=== PATIENT | female | born 1980 | race Asian ===

== ENCOUNTER 2017-05-06 19:15 | Inpatient (IN) | payer OTHER ==
[2017-05-06] MEDS ORDERED: LR 1,000 ML IV PRN (19:49)
[2017-05-06] MEDS ORDERED: OLIVE OIL 118 ML BTL MISC PRN (19:49)
[2017-05-06] MEDS ORDERED: EPSOM SALT 454 GM TP PRN (19:49)
[2017-05-06] MEDS ORDERED: OXYTOCIN 20 UNIT in LR 1,000 ML IV PRN (19:49)
[2017-05-06] MEDS ORDERED: TERBUTALINE SULFATE 1 MG/ML VIAL IV PRN (19:49)
[2017-05-06 20:14] LABS: % IMMATURE GRANULYOCYTES 0.5 % (0.0-1.1); ABSOLUTE IMMATURE GRANULOCYTES 0.05 10^3/uL (0.00-0.10); ADD DIFF? NO; ADD MORPH? NO; ADD SCAN? NO; ATYPICAL LYMPHOCYTE FLAG 0 (0-99); FRAGMENT RBC FLAG 0 (0-99); HEMOGLOBIN 14.4 g/dL (12.6-16.3); LEFT SHIFT FLG 0 (0-99); LIPEMIA HEMOLYSIS FLAG 90 (0-99); MEAN CELL HEMOGLOBIN 30.8 pg (27.9-34.1); MEAN CELL VOLUME 85.7 fL (81.5-99.8); MEAN PLATELET VOLUME 12.5 fL (8.7-11.7); PLATELET CLUMPS FLAG 0 (0-99); PLATELET COUNT 130 10^3/uL (150-400); RED BLOOD CELL COUNT 4.67 10^6/uL (4.18-5.33); RED CELL DISTRIBUTION WIDTH 12.2 % (11.5-15.2)
[2017-05-06] MEDS ORDERED: LIDOCAINE 1% 300 MG/30 ML SDV ONE (21:00)
[2017-05-06] MEDS ORDERED: OLIVE OIL 118 ML BTL ONE (21:00)
[2017-05-06] MEDS ORDERED: MISOPROSTOL 200 MCG TAB ONE (21:01)
[2017-05-06] MEDS ORDERED: OXYTOCIN 10 UNIT/ML VIAL ONE (21:01)
[2017-05-06] MEDS ORDERED: TERBUTALINE SULFATE 1 MG/ML VIAL ONE (21:01)
[2017-05-06] MEDS ORDERED: AMMONIA AROMATIC 1 EACH AMP IH ONE (21:01)
[2017-05-06] MEDS ORDERED: MISOPROSTOL 100 MCG TAB PO ONE (21:11)
--- NOTE | 2017-05-06 21:58 | GHP ---
[f rep st] PREOP HISTORY AND PHYSICAL DATE OF ADMISSION: 05/06/2017 HISTORY OF PRESENT ILLNESS: The patient is a 36-year-old, G1, P0, with an estimated due date of 04/24, currently at 40 weeks and 2 days, who presents for postdates induction. The patient has not had any signs of contractions or vaginal bleeding. Bag of water is intact. The patient has been hav ing good movement. The patient has declined vaginal exams in the office, but has been told gopal t the baby is vertex but not really engaged into the pelvis. The patient is interested in induction and understands that she would need cervical ripening. The patient has been counseled as to options including a Beck catheter placed within the cervix that she would be able to go home and sleep at [facility] versus Cytotec to ripen the cervix medically. The patient opts to proceed with Cytotec so that sh e does not have to have the vaginal manipulation. She is anxious about discomfort vaginally. PAST OBSTETRIC HISTORY: The patient has been followed with [facility] since 6 weeks gestat ion. The patient has had a relatively uncomplicated . She did have a very small subchorion ic hemorrhage in the 1st trimester, and this was observed on ultrasound and spontaneously resolved. The patient had early testing that was all normal. The patient has had some symptoms of aci d reflux, managed with Tums. At the anatomy ultrasound, the baby was 40th percentile growth with nor mal amniotic fluid with a left lateral placenta. Anatomy check was normal. The patient had a Tdap v accination at 31 weeks. LABS: Include maternal blood type B positive with negative antibody screen. RPR is nonreac tive. Rubella immune. Hepatitis B surface antigen negative. HIV negative. SMA, cystic fibrosis, f ragile X all negative. Urinalysis and culture negative. Pap smear normal. Gonorrhea and chlamydia negative. Verifi testing was normal and MSAFP was negative. Recent hematocrit 41%. 1-hour Glucola was normal. GBS culture was negative. PAST MEDICAL HISTORY: Endometriosis with pelvic pain. PAST SURGICAL HISTORY: Laparoscopy in 2009 for endometriosis with an ovarian cyst that was removed. ALLERGIES: No known drug allergies. CURRENT MEDICATIONS: Only vitamins and occasional vitamin D. SOCIAL HISTORY: The patient is , lives with her Travis, who is a rheumatology physici an. The patient is a nonsmoker. No alcohol or drug use. PHYSICAL EXAM: GENERAL: Upon admission, upon exam, the patient is a bit anxious about the labor pro cess, but is otherwise in no distress. Well-developed, well-nourished female at full-term. VITAL SI GNS: The patient is afebrile. Initial blood pressure 114/81. See nursing documentation for full de tails. heart tones show a category 1 tracing with baseline in the 140s, with good variability and accelerations, with no decelerations. The patient has had a rare contraction noted on the monito r that was not noted by the patient. PELVIC: Reveals a soft cervix that is mid position, fingertip, long, -2 station. An ultrasound was performed to confirm vertex presentation. EXTREMITIES: Nonten lg, no edema. ASSESSMENT: Intrauterine at 40 weeks 2 days with unfavorable cervix, admitted for cervical ripening before induction tomorrow. Maternal blood type B positive, and GBS negative. The patient desires Cytotec for cervical ripening. She will receive 50 mcg orally followed by 25 mcg q.4 hours. The patient will have monitoring for tolerance throughout the night. PLAN: Is to begin Pitocin tomorrow and the patient desires an epidural for labor management. /[id number]/MODL
[2017-05-07] MEDS: MISOPROSTOL 100 MCG TAB PO SCH ×3 (01:22→09:40)
--- NOTE | 2017-05-07 13:19 | OBPROG ---
Labor Progress Note Assessment/Plan: Assessment: 36 yo G1 @ 40.3 weeks admitted for elective IOL Exam performed @ 935AM--late entry note Plan: Continue cervical ripening (Cytotec PV q 4 hrs), reassess at next (q4h) labor check. 05/07/17 13:16 05/07/17 13:18 Subjective/Intrapartum Course: 05/07/17 13:18 Comfortable, not feeling contractions. No vaginal bleeding. Reports good movement. Objective: 05/06/17 20:04 Patient ABO/Rh B POSITIVE 05/06/17 20:04 - SVE Dilation (cm): 1 Effacement (%): 50 Station: -3 Membranes: Intact - FHR Assessment Maurice FHR (bpm): 130 FHR Pattern Variability: Moderate FHR Category: 1 Oxytocin Orders Assessment - Pre-Induction/Augmentation Assessment Gestational Age: 40 week(s) and 2 day(s) ICD10 Worksheet Patient Problems: Problems Problem Status Onset Encounter for induction of labor Acute
[2017-05-07] MEDS ORDERED: MISOPROSTOL 25 MCG VG SCH (14:30)
[2017-05-07] MEDS ORDERED: DINOPROSTONE 10 MG VAG SUPP VG ONE (14:48)
--- NOTE | 2017-05-07 15:53 | OBPROG ---
Labor Progress Note Assessment/Plan: Assessment: 36 yo G1 @ 40.3 weeks admitted for elective IOL Exam performed @ 935AM--late entry note Plan: Continue cervical ripening (Cytotec PV q 4 hrs), reassess at next (q4h) labor check. 05/07/17 13:16 05/07/17 13:18 05/07/17 15:51 Cervidil placed for cervical ripening Subjective/Intrapartum Course: 05/07/17 13:18 Comfortable, not feeling contractions. No vaginal bleeding. Reports good movement. 05/07/17 15:51 Complains of mild-moderate pain with contractions. No vaginal bleeding or loss of fluid. Objective: 05/06/17 20:04 Patient ABO/Rh B POSITIVE 05/06/17 20:04 CE: FT/thick/-3/posterior, non-favorable (even after 4 misoprostol doses), not a Beck bulb candidate FHR: 130, cat I [place]: q 2 min - SVE Dilation (cm): 1 Effacement (%): 50 Station: -3 Membranes: Intact - FHR Assessment Maurice FHR (bpm): 130 FHR Pattern Variability: Moderate FHR Category: 1 Oxytocin Orders Assessment - Pre-Induction/Augmentation Assessment Gestational Age: 40 week(s) and 2 day(s) ICD10 Worksheet Patient Problems: Problems Problem Status Onset Encounter for induction of labor Acute
[2017-05-08] MEDS ORDERED: ACETAMINOPHEN 325 MG TAB ONE
[2017-05-08] MEDS: ACETAMINOPHEN 325 MG TAB PO PRN (00:01)
[2017-05-08] MEDS: MISOPROSTOL 100 MCG TAB PO SCH (02:58)
--- NOTE | 2017-05-08 05:14 | OBPROG ---
Labor Progress Note Assessment/Plan: Assessment: 36 yo G1 @ 40.3 weeks admitted for elective IOL Exam performed @ 935AM--late entry note Plan: Continue cervical ripening (Cytotec PV q 4 hrs), reassess at next (q4h) labor check. 05/07/17 13:16 05/07/17 13:18 05/07/17 15:51 Cervidil placed for cervical ripening 05/08/17 05:10 Cervidil out. CE: 1/75%/posterior Patient wants epidural Considering Beck Bulb s/p epidural Subjective/Intrapartum Course: 05/07/17 13:18 Comfortable, not feeling contractions. No vaginal bleeding. Reports good movement. 05/07/17 15:51 Complains of mild-moderate pain with contractions. No vaginal bleeding or loss of fluid. 05/08/17 05:12 Patient did not rest much throughout the night. Objective: 05/06/17 20:04 Patient ABO/Rh B POSITIVE 05/06/17 20:04 - SVE Dilation (cm): 1 Effacement (%): 75 Station: -3 Membranes: Intact - FHR Assessment Maurice FHR (bpm): 120 FHR Pattern Variability: Moderate FHR Category: 1 - Physical Exam General Appearance: anxiety Cardiac/Chest: regular rate, rhythm Abdomen: normal bowel sounds, soft Extremities: non-tender Neuro/Psych: no motor/sensory deficits, alert, normal mood/affect, oriented x 3 Oxytocin Orders Assessment - Pre-Induction/Augmentation Assessment Gestational Age: 40 week(s) and 2 day(s) ICD10 Worksheet Patient Problems: Problems Problem Status Onset Encounter for induction of labor Acute
--- NOTE | 2017-05-08 07:07 | OBPROG ---
Labor Progress Note Assessment/Plan: Assessment: 36 yo G1 @ 40.3 weeks admitted for elective IOL Exam performed @ 935AM--late entry note Plan: Continue cervical ripening (Cytotec PV q 4 hrs), reassess at next (q4h) labor check. 05/07/17 13:16 05/07/17 13:18 05/07/17 15:51 Cervidil placed for cervical ripening 05/08/17 05:10 Cervidil out. CE: 1/75%/posterior Patient wants epidural Considering Beck Bulb s/p epidural 05/08/17 07:05 s/p epidural s/p AROM, clear fluid 05/08/17 07:07 Await 2nd stage Subjective/Intrapartum Course: 05/07/17 13:18 Comfortable, not feeling contractions. No vaginal bleeding. Reports good movement. 05/07/17 15:51 Complains of mild-moderate pain with contractions. No vaginal bleeding or loss of fluid. 05/08/17 05:12 Patient did not rest much throughout the night. 05/08/17 07:06 Comfortable s/p epidural Objective: 05/06/17 20:04 Patient ABO/Rh B POSITIVE 05/06/17 20:04 - SVE Dilation (cm): 8 Effacement (%): 100 Station: -1 Membranes: AROM Amniotic Fluid Color: Clear - Contraction Pattern Assessment Current Contraction Pattern: Regular - FHR Assessment Maurice FHR (bpm): 115 (s/p epidural) FHR Pattern Variability: Moderate FHR Category: 1 Oxytocin Orders Assessment - Pre-Induction/Augmentation Assessment Gestational Age: 40 week(s) and 2 day(s) ICD10 Worksheet Patient Problems: Problems Problem Status Onset Encounter for induction of labor Acute
[2017-05-08] MEDS ORDERED: fentaNYL 2MCG/ML/BUP 0.1% RTU 100 ML BAG EP ONE (08:22)
[2017-05-08] MEDS ORDERED: BUPIVACAINE 0.25% 30 ML SDV ONE (08:23)
[2017-05-08] MEDS ORDERED: PHENYLEPHRINE HCL 100 MCG/ML SYR ONE (08:23)
[2017-05-08] MEDS ORDERED: PHENYLEPHRINE HCL 100 MCG/ML SYR IVP PRN (09:07)
[2017-05-08] MEDS ORDERED: ONDANSETRON 4 MG/2 ML VIAL IVP PRN (09:07)
--- NOTE | 2017-05-08 09:09 | PREANESOB ---
Obstetric Pre-Anesthesia Info - General Info Proposed Procedure: labor epidural : 1 Para: 0 RASHEED: 05/04/17 Gestational Age: 40 week(s) and 2 day(s) - Labor Status Cervical Dilation per last OB SVE: 8 Station per last OB SVE: -1 Amniotic Fluid Color: Clear Anesthesia Allergies/Adverse Reactions: Allergy/AdvReac Type Severity Reaction Status Date / Time No Known Allergies Allergy Unverified 05/06/17 19:35 Home Medications: Medication Instructions Recorded Ferrous Sulfate [Iron] 1 tab PO DAILY 05/06/17 Vit27&Calcium/Iron/FA 1 tab PO DAILY 05/06/17 [] Visit Medications: Generic Name Dose Route Start Last Admin Trade Name Freq PRN Reason Stop Dose Admin Acetaminophen 650 mg 05/08/17 00:01 05/08/17 00:01 Tylenol PO 11/04/17 00:00 650 mg Q6HRS PRN Administration Pain, Mild/Fever, Can Take PO Lactated Ringer's 1,000 mls @ 0 mls/hr 05/06/17 19:49 Lr IV 11/02/17 19:48 PRN PRN SEE PROTOCOL CONDITIONS Protocol Per Protocol Oxytocin 20 unit/ Lactated 1,002 mls @ 150 mls/hr 05/06/17 19:49 Ringer's IV PRN PRN Post- bleeding Ibuprofen 600 mg 05/06/17 19:49 Motrin PO 11/02/17 19:48 Q6HRS PRN post , inflammation Magnesium Sulfate 454 gm 05/06/17 19:49 Epsom Salt TP 11/02/17 19:48 Q1H PRN perineal discomfort [place] Oil 118 ml 05/06/17 19:49 Sweet Oil MISC 11/02/17 19:48 ONCE PRN perineal massage Terbutaline Sulfate 0.25 mg 05/06/17 19:49 Brethine IV 11/02/17 19:48 ONCE PRN Tachysystole Discontinued Medications Generic Name Dose Route Start Last Admin Trade Name Freq PRN Reason Stop Dose Admin Acetaminophen Confirm 05/08/17 00:00 Tylenol Administered 05/08/17 00:01 Dose 650 mg .ROUTE .STK-MED ONE Ammonia (Aromatic Spirit) Confirm 05/06/17 21:01 Ammonia Aromatic Administered 05/06/17 21:02 Dose 1 each IH .STK-MED ONE Bupivacaine HCl Confirm 05/08/17 08:23 Sensorcaine 0.25% Sdv Administered 05/08/17 08:24 Dose 30 ml .ROUTE .STK-MED ONE Dinoprostone 10 mg 05/07/17 14:48 05/07/17 15:45 Cervidil VG 05/07/17 14:49 10 mg ONCE ONE Administration Ephedrine Sulfate Confirm 05/06/17 21:01 Ephedrine Sulfate Administered 05/06/17 21:02 Dose 50 mg .ROUTE .STK-MED ONE Ephedrine Sulfate Confirm 05/08/17 08:22 Ephedrine Sulfate Administered 05/08/17 08:23 Dose 50 mg .ROUTE .STK-MED ONE Fentanyl/Bupivacaine HCl Confirm 05/08/17 08:22 Fentanyl/Bupivacaine/Ns 2 Mcg/Ml 0.1% (Premix Administered 05/08/17 08:23 Dose 100 ml EP .STK-MED ONE Lidocaine HCl Confirm 05/06/17 21:00 Lidocaine Hcl 1% Administered 05/06/17 21:01 Dose 300 mg .ROUTE .STK-MED ONE Misoprostol Confirm 05/06/17 21:01 Cytotec Administered 05/06/17 21:02 Dose 1,000 mcg .ROUTE .STK-MED ONE Misoprostol 50 mcg 05/06/17 21:11 05/06/17 21:34 Cytotec PO 05/06/17 21:12 50 mcg ONCE ONE Administration Misoprostol 25 mcg 05/07/17 01:30 05/08/17 02:58 Cytotec PO 11/03/17 01:29 Not Given Q4H NIKI Misoprostol 25 mcg 05/07/17 14:30 05/08/17 02:58 Cytotec Vag Cap VG 11/03/17 14:29 Not Given Q4H NIKI Mancelona Oil Confirm 05/06/17 21:00 Sweet Oil Administered 05/06/17 21:01 Dose 118 ml .ROUTE .STK-MED ONE Oxytocin Confirm 05/06/17 21:01 Pitocin Administered 05/06/17 21:02 Dose 30 unit .ROUTE .STK-MED ONE Phenylephrine HCl Confirm 05/08/17 08:23 Neosynephrine Administered 05/08/17 08:24 Dose 1,000 mcg .ROUTE .STK-MED ONE Terbutaline Sulfate Confirm 05/06/17 21:01 Brethine Administered 05/06/17 21:02 Dose 1 mg .ROUTE .STK-MED ONE - Vital Signs Height/Weight (Nursing): Height 160.02 cm Weight 62.596 kg - Focused Exam Neck exam: FROM Mallampati Score: Class 1 Mouth exam: normal dental/mouth exam Pulmonary: no respiratory distress Cardiovascular: regular rate and rhythym Labs: 05/06/17 20:04 Patient ABO/Rh B POSITIVE 05/06/17 20:04 - Plan Consent Signed and on Chart: Yes Urgent/Emergent Case: Jazz grimaldo completed preop but documented later for safe timely pt care
[2017-05-08] MEDS ORDERED: LR 500 ML IV SCH (09:30)
[2017-05-08] MEDS ORDERED: fentaNYL 2MCG/ML/BUP 0.1% RTU 100 ML EP SCH (09:30)
[2017-05-08] MEDS ORDERED: LR 500 ML IV PRN ×2 (12:06→13:17)
--- NOTE | 2017-05-08 12:07 | OBPROG ---
Labor Progress Note Assessment/Plan: Assessment: 36 y/o @ 40 4/7 wks for post date IOL Plan: s/p cervical ripening with Cytotec x 5 and Cervidil On exam, she is 1-2/25/-2; AROM-small amount blood-tinged fluid noted s/p epidural, pt is comfortable Beck bulb placed with speculum and inflated with 30 cc NS, pt rodolfo well Will start Pitocin per protocol FHTs- Cat I tracing 05/08/17 12:07 Subjective/Intrapartum Course: 05/07/17 13:18 Comfortable, not feeling contractions. No vaginal bleeding. Reports good movement. 05/07/17 15:51 Complains of mild-moderate pain with contractions. No vaginal bleeding or loss of fluid. 05/08/17 05:12 Patient did not rest much throughout the night. 05/08/17 07:06 Comfortable s/p epidural 05/08/17 12:10 Pt is doing well, no complaints. Comfortable with epidural that was replaced. Objective: 05/06/17 20:04 Patient ABO/Rh B POSITIVE 05/06/17 20:04 - SVE Dilation (cm): 1 Effacement (%): Less than 50 Station: -2 Membranes: AROM Amniotic Fluid Color: Clear - Contraction Pattern Assessment Current Contraction Pattern: Irregular - FHR Assessment Maurice FHR (bpm): 140 FHR Pattern Variability: Moderate FHR Category: 1 - Procedures Non-surgical Procedures: Amniotomy - AP Antepartum Course: 05/08/17 12:11 Postdate IOL. Oxytocin Orders Assessment - Pre-Induction/Augmentation Assessment Gestational Age: 40 week(s) and 2 day(s) ICD10 Worksheet Patient Problems: Problems Problem Status Onset Encounter for induction of labor Acute Post-dates Acute - ICD10 Problem Qualifiers (1) Post-dates
[2017-05-08] MEDS ORDERED: OXYTOCIN 30 UNIT in LR 500 ML IV SCH ×2 (12:15→13:30)
[2017-05-08] MEDS ORDERED: OXYTOCIN 10 UNIT/ML VIAL ONE (12:47)
--- NOTE | 2017-05-08 15:44 | OBPROG ---
Labor Progress Note Assessment/Plan: Assessment: 36 y/o @ 40 4/7 wks for post date IOL Plan: s/p cervical ripening with Cytotec x 5 and Cervidil On exam, mosqueda bulb noted to be in vagina; it was deflated and removed Pitocin at 6 mu/min, cont per protocol FHTs- Cat I tracing 05/08/17 15:41 Subjective/Intrapartum Course: 05/07/17 13:18 Comfortable, not feeling contractions. No vaginal bleeding. Reports good movement. 05/07/17 15:51 Complains of mild-moderate pain with contractions. No vaginal bleeding or loss of fluid. 05/08/17 05:12 Patient did not rest much throughout the night. 05/08/17 07:06 Comfortable s/p epidural 05/08/17 12:10 Pt is doing well, no complaints. Comfortable with epidural that was replaced. 05/08/17 15:42 Pt had some n/v after eating some soup, but relief with Zofran. Kept down pudding. No pain with ctx's noted. Objective: 05/06/17 20:04 Patient ABO/Rh B POSITIVE 05/06/17 20:04 - SVE Dilation (cm): 2 Effacement (%): 50 Station: -2 Membranes: AROM Amniotic Fluid Color: Clear - Contraction Pattern Assessment Current Contraction Pattern: Irregular (q 3-7 min) - FHR Assessment Maurice FHR (bpm): 140 FHR Pattern Variability: Moderate FHR Category: 1 - Procedures Non-surgical Procedures: Amniotomy - AP Antepartum Course: 05/08/17 12:11 Postdate IOL. Oxytocin Orders Assessment - Pre-Induction/Augmentation Assessment Gestational Age: 40 week(s) and 2 day(s) ICD10 Worksheet Patient Problems: Problems Problem Status Onset Encounter for induction of labor Acute Post-dates Acute - ICD10 Problem Qualifiers (1) Post-dates
--- NOTE | 2017-05-09 00:01 | OBPROG ---
Labor Progress Note Assessment/Plan: Assessment: 36 y/o @ 40 4/7 wks for post date IOL Plan: s/p cervical ripening with Cytotec x 5, Cervidil and mosqueda bulb Pitocin at 12 mu/min, was up to 20 mu/min byt decreased secondary to intermittent late decels FHTs- Cat II tracing, will cont to closely monitor IUPC unable to be placed at this time Will recheck in 2 hours and if no cervical change, discuss failed IOL and proceeding to OR for PCS Pt agrees with the POC 05/08/17 23:58 Subjective/Intrapartum Course: 05/07/17 13:18 Comfortable, not feeling contractions. No vaginal bleeding. Reports good movement. 05/07/17 15:51 Complains of mild-moderate pain with contractions. No vaginal bleeding or loss of fluid. 05/08/17 05:12 Patient did not rest much throughout the night. 05/08/17 07:06 Comfortable s/p epidural 05/08/17 12:10 Pt is doing well, no complaints. Comfortable with epidural that was replaced. 05/08/17 15:42 Pt had some n/v after eating some soup, but relief with Zofran. Kept down pudding. No pain with ctx's noted. 05/09/17 00:00 Pt was sleeping, no complaints. Objective: 05/06/17 20:04 Patient ABO/Rh B POSITIVE 05/06/17 20:04 - SVE Dilation (cm): 2 Effacement (%): 50 Station: -2 (2-3) Membranes: AROM Amniotic Fluid Color: Clear - Contraction Pattern Assessment Current Contraction Pattern: Regular (q 3-5 min) - FHR Assessment Maurice FHR (bpm): 140 FHR Pattern Variability: Moderate FHR Category: 2 (intermittent late decels, strip now reassuring) - Procedures Non-surgical Procedures: Amniotomy - AP Antepartum Course: 05/08/17 12:11 Postdate IOL. Oxytocin Orders Assessment - Pre-Induction/Augmentation Assessment Gestational Age: 40 week(s) and 2 day(s) ICD10 Worksheet Patient Problems: Problems Problem Status Onset Encounter for induction of labor Acute Post-dates Acute - ICD10 Problem Qualifiers (1) Post-dates
--- NOTE | 2017-05-09 02:03 | OBPROG ---
Labor Progress Note Assessment/Plan: Assessment: 36 y/o @ 40 5/7 wks for post date IOL Plan: s/p cervical ripening with Cytotec x 5, Cervidil and mosqueda bulb Pitocin at 10 mu/min, cont per protocol Cervical change noted, now 3-4/70/-2 FHTs- Cat II tracing, will cont to closely monitor 05/09/17 01:59 Subjective/Intrapartum Course: 05/07/17 13:18 Comfortable, not feeling contractions. No vaginal bleeding. Reports good movement. 05/07/17 15:51 Complains of mild-moderate pain with contractions. No vaginal bleeding or loss of fluid. 05/08/17 05:12 Patient did not rest much throughout the night. 05/08/17 07:06 Comfortable s/p epidural 05/08/17 12:10 Pt is doing well, no complaints. Comfortable with epidural that was replaced. 05/08/17 15:42 Pt had some n/v after eating some soup, but relief with Zofran. Kept down pudding. No pain with ctx's noted. 05/09/17 00:00 Pt was sleeping, no complaints. 05/09/17 02:03 Pt still comfortable, resting. Objective: 05/06/17 20:04 Patient ABO/Rh B POSITIVE 05/06/17 20:04 - SVE Dilation (cm): 3 (3-4) Effacement (%): 75 Station: -2 Membranes: AROM Amniotic Fluid Color: Clear - Contraction Pattern Assessment Current Contraction Pattern: Regular (q 3-5 min) - FHR Assessment Maurice FHR (bpm): 160 FHR Pattern Variability: Moderate FHR Category: 2 (Intermittent variable decels noted;) - Procedures Non-surgical Procedures: Amniotomy - AP Antepartum Course: 05/08/17 12:11 Postdate IOL. Oxytocin Orders Assessment - Pre-Induction/Augmentation Assessment Gestational Age: 40 week(s) and 2 day(s) ICD10 Worksheet Patient Problems: Problems Problem Status Onset Encounter for induction of labor Acute Post-dates Acute - ICD10 Problem Qualifiers (1) Post-dates
[2017-05-09] MEDS: ACETAMINOPHEN 325 MG TAB PO PRN ×2 (03:21→23:11)
--- NOTE | 2017-05-09 05:51 | OBPROG ---
Labor Progress Note Assessment/Plan: Assessment: 36 y/o @ 40 5/7 wks for post date IOL Plan: s/p cervical ripening with Cytotec x 5, Cervidil and mosqueda bulb Pitocin was stopped secondary to intermittent late decels, will restart at 2 mu and if late decels continue will proceed to OR for PCS IUPC placed without difficulty FHTs- Cat II tracing, will cont to closely monitor 05/09/17 05:47 Subjective/Intrapartum Course: 05/07/17 13:18 Comfortable, not feeling contractions. No vaginal bleeding. Reports good movement. 05/07/17 15:51 Complains of mild-moderate pain with contractions. No vaginal bleeding or loss of fluid. 05/08/17 05:12 Patient did not rest much throughout the night. 05/08/17 07:06 Comfortable s/p epidural 05/08/17 12:10 Pt is doing well, no complaints. Comfortable with epidural that was replaced. 05/08/17 15:42 Pt had some n/v after eating some soup, but relief with Zofran. Kept down pudding. No pain with ctx's noted. 05/09/17 00:00 Pt was sleeping, no complaints. 05/09/17 02:03 Pt still comfortable, resting. 05/09/17 05:51 Pt was sleeping. Objective: 05/06/17 20:04 Patient ABO/Rh B POSITIVE 05/06/17 20:04 - SVE Dilation (cm): 4 Effacement (%): 75 Station: -1 Membranes: AROM Amniotic Fluid Color: Clear - Contraction Pattern Assessment Current Contraction Pattern: Irregular - FHR Assessment Maurice FHR (bpm): 150 FHR Pattern Variability: Moderate FHR Category: 2 (intermittent late decels and variable decels noted) - Procedures Non-surgical Procedures: Amniotomy - AP Antepartum Course: 05/08/17 12:11 Postdate IOL. Oxytocin Orders Assessment - Pre-Induction/Augmentation Assessment Gestational Age: 40 week(s) and 2 day(s) ICD10 Worksheet Patient Problems: Problems Problem Status Onset Encounter for induction of labor Acute Post-dates Acute - ICD10 Problem Qualifiers (1) Post-dates
[2017-05-09] MEDS ORDERED: ceFAZolin 2 GM/SWFI 2 GM/20 ML SYR IVP ONE (06:24)
[2017-05-09] MEDS ORDERED: CITRIC ACID/SODIUM CITRATE 30 ML UDCUP ONE (06:32)
[2017-05-09] MEDS ORDERED: CEFAZOLIN 2 GM/DEXTROSE/100 ML BAG IV ONE (06:32)
[2017-05-09] MEDS ORDERED: ONDANSETRON 4 MG/2 ML VIAL ONE (06:49)
[2017-05-09] MEDS ORDERED: ceFAZolin 2 GM/DEXTROSE 100 ML IV ONE (07:00)
[2017-05-09] MEDS ORDERED: OXYTOCIN 100 UNITS/10 ML VIAL ONE (07:10)
[2017-05-09] MEDS ORDERED: fentaNYL 100 MCG/2 ML INJ ONE (07:11)
[2017-05-09] MEDS ORDERED: morphINE PF 5 MG/10 ML INJ ONE (07:17)
[2017-05-09] MEDS ORDERED: KETOROLAC 30 MG/1 ML SDV ONE (07:20)
[2017-05-09] MEDS ORDERED: IBUPROFEN 600 MG TAB PO PRN (07:53)
[2017-05-09] MEDS ORDERED: PROMETHAZINE HCL 25 MG/ML INJ IVP PRN (07:53)
[2017-05-09] MEDS ORDERED: MAGNESIUM HYDROXIDE 30 ML UDCUP PO PRN (07:53)
[2017-05-09] MEDS ORDERED: LACTULOSE 20 GM/30 ML UDCUP PO PRN (07:53)
[2017-05-09] MEDS ORDERED: SIMETHICONE 80 MG TAB CHEW PO PRN (07:53)
[2017-05-09] MEDS ORDERED: DOCUSATE SODIUM 100 MG CAP PO PRN (07:53)
[2017-05-09] MEDS ORDERED: POLYETHYLENE GLYCOL 3350 17 GM PKT PO PRN (07:53)
[2017-05-09] MEDS ORDERED: BISACODYL 10 MG SUPP PR PRN (07:53)
--- NOTE | 2017-05-09 07:58 | PREANESOB ---
Obstetric Pre-Anesthesia Info - General Info Proposed Procedure: Section : 1 Para: 0 RASHEED: 05/04/17 Gestational Age: 40 week(s) and 2 day(s) - Info Status: Full Term FHR Pattern: Non-reassuring - Labor Status Cervical Dilation per last OB SVE: 4 Station per last OB SVE: -1 Amniotic Fluid Color: Clear Section History: Primary Indications for Current Section: Non-reas. Status Labor Epidural: Yes (Pre-existing epidural. RBA discussed.) Anesthesia Allergies/Adverse Reactions: Allergy/AdvReac Type Severity Reaction Status Date / Time No Known Allergies Allergy Unverified 05/06/17 19:35 Home Medications: Medication Instructions Recorded Ferrous Sulfate [Iron] 1 tab PO DAILY 05/06/17 Vit27&Calcium/Iron/FA 1 tab PO DAILY 05/06/17 [] Visit Medications: Generic Name Dose Route Start Last Admin Trade Name Freq PRN Reason Stop Dose Admin Acetaminophen 650 mg 05/08/17 00:01 05/09/17 03:21 Tylenol PO 11/04/17 00:00 650 mg Q6HRS PRN Administration Pain, Mild/Fever, Can Take PO Hydrocodone Bitart/Acetaminophen 1 - 2 tab 05/09/17 07:53 Center 5/325 PO 05/19/17 07:52 Q4HRS PRN Pain, Moderate Bisacodyl 10 mg 05/09/17 07:53 Dulcolax Rectal OR 11/05/17 07:52 DAILY PRN Constipation Protocol Docusate Sodium 100 mg 05/09/17 07:53 Colace PO 11/05/17 07:52 BID PRN Constipation Ephedrine Sulfate 10 mg 05/08/17 09:07 Ephedrine Sulfate IV 11/04/17 09:06 .Q2M PRN Hypotension Lactated Ringer's 1,000 mls @ 0 mls/hr 05/06/17 19:49 05/09/17 02:49 Lr IV 11/02/17 19:48 1,000 mls PRN PRN Administration SEE PROTOCOL CONDITIONS Protocol Per Protocol Oxytocin 20 unit/ Lactated 1,002 mls @ 150 mls/hr 05/06/17 19:49 Ringer's IV PRN PRN Post- bleeding Fentanyl/Bupivacaine HCl 100 mls @ 0 mls/hr 05/08/17 09:30 05/09/17 04:12 Fentanyl/Bupivacaine/Ns 2 Mcg/Ml 0.1% (Premix EP 05/18/17 09:29 100 mls CONT NIKI Administration Protocol As Directed Lactated Ringer's 500 mls @ 0 mls/hr 05/08/17 09:30 05/08/17 07:00 Lr IV 11/04/17 09:29 500 mls CONT NIKI Administration As Directed Lactated Ringer's 500 mls @ 500 mls/hr 05/08/17 12:06 Lr IV PRN PRN Maternal Hypotension Lactated Ringer's 500 mls @ 500 mls/hr 05/08/17 13:17 Lr IV PRN PRN Maternal Hypotension Oxytocin 30 unit/ Lactated 503 mls @ 0 mls/hr 05/08/17 12:15 Ringer's IV 11/04/17 12:14 CONT NIKI Protocol Per Protocol Oxytocin 30 unit/ Lactated 503 mls @ 0 mls/hr 05/08/17 13:30 Ringer's IV 11/04/17 13:29 CONT NIKI Protocol Per Protocol Ibuprofen 600 mg 05/06/17 19:49 Motrin PO 11/02/17 19:48 Q6HRS PRN post , inflammation Ibuprofen 600 mg 05/09/17 07:53 Motrin PO 11/05/17 07:52 Q6HRS PRN Inflammation Ketorolac Tromethamine 30 mg 05/09/17 12:00 Toradol IVP 05/10/17 06:01 Q6HRS NIKI Lactulose 20 gm 05/09/17 07:53 Cephulac PO 11/05/17 07:52 TID PRN Constipation Protocol Magnesium Hydroxide 30 ml 05/09/17 07:53 Milk Of Magnesia PO 11/05/17 07:52 DAILY PRN Constipation Protocol Magnesium Sulfate 454 gm 05/06/17 19:49 Epsom Salt TP 11/02/17 19:48 Q1H PRN perineal discomfort [place]ford Oil 118 ml 05/06/17 19:49 Sweet Oil MISC 11/02/17 19:48 ONCE PRN perineal massage Ondansetron HCl 4 mg 05/08/17 09:07 05/08/17 13:26 Zofran IVP 05/09/17 09:06 4 mg Q4HRS PRN Administration Nausea/Vomiting, Can't Take PO Phenylephrine HCl 100 mcg 05/08/17 09:07 Neosynephrine IVP 11/04/17 09:06 .Q2M PRN Hypotension Polyethylene Glycol 17 gm 05/09/17 07:53 Miralax PO 11/05/17 07:52 DAILY PRN Constipation, patient prefers Protocol Promethazine HCl 25 mg 05/09/17 07:53 Phenergan IVP 11/05/17 07:52 Q6HRS PRN Nausea/Vomiting, Use 1st Senna/Docusate Sodium 1 - 2 tab 05/09/17 09:00 Senokot-S PO 11/05/17 08:59 BID NIKI Protocol Simethicone 80 mg 05/09/17 07:53 Mylicon PO 11/05/17 07:52 .TIDMEALS AND HS PRN Gas Terbutaline Sulfate 0.25 mg 05/06/17 19:49 Brethine IV 11/02/17 19:48 ONCE PRN Tachysystole Discontinued Medications Generic Name Dose Route Start Last Admin Trade Name [place] PRN Reason Stop Dose Admin Acetaminophen Confirm 05/08/17 00:00 Tylenol Administered 05/08/17 00:01 Dose 650 mg .ROUTE .STK-MED ONE Ammonia (Aromatic Spirit) Confirm 05/06/17 21:01 Ammonia Aromatic Administered 05/06/17 21:02 Dose 1 each IH .STK-MED ONE Bupivacaine HCl Confirm 05/08/17 08:23 Sensorcaine 0.25% Sdv Administered 05/08/17 08:24 Dose 30 ml .ROUTE .STK-MED ONE Cefazolin Sodium/Dextrose Confirm 05/09/17 06:32 Ancef 2 Gm (Premix) Administered 05/09/17 06:33 Dose 2 gm IV .STK-MED ONE Citric Acid/Sodium Citrate Confirm 05/09/17 06:32 Bicitra Administered 05/09/17 06:33 Dose 30 ml .ROUTE .STK-MED ONE Dinoprostone 10 mg 05/07/17 14:48 05/07/17 15:45 Cervidil VG 05/07/17 14:49 10 mg ONCE ONE Administration Ephedrine Sulfate Confirm 05/06/17 21:01 Ephedrine Sulfate Administered 05/06/17 21:02 Dose 50 mg .ROUTE .STK-MED ONE Ephedrine Sulfate Confirm 05/08/17 08:22 Ephedrine Sulfate Administered 05/08/17 08:23 Dose 50 mg .ROUTE .STK-MED ONE Fentanyl Confirm 05/09/17 07:11 Sublimaze Administered 05/09/17 07:12 Dose 100 mcg .ROUTE .STK-MED ONE Fentanyl/Bupivacaine HCl Confirm 05/08/17 08:22 Fentanyl/Bupivacaine/Ns 2 Mcg/Ml 0.1% (Premix Administered 05/08/17 08:23 Dose 100 ml EP .STK-MED ONE Cefazolin Sodium/Dextrose 100 mls @ 200 mls/hr 05/09/17 07:00 05/09/17 06:34 Ancef 2 Gm (Premix) IV 05/09/17 07:29 100 mls ONCE ONE Administration Ketorolac Tromethamine Confirm 05/09/17 07:20 Toradol Administered 05/09/17 07:21 Dose 30 mg .ROUTE .STK-MED ONE Lidocaine HCl Confirm 05/06/17 21:00 Lidocaine Hcl 1% Administered 05/06/17 21:01 Dose 300 mg .ROUTE .STK-MED ONE Misoprostol Confirm 05/06/17 21:01 Cytotec Administered 05/06/17 21:02 Dose 1,000 mcg .ROUTE .STK-MED ONE Misoprostol 50 mcg 05/06/17 21:11 05/06/17 21:34 Cytotec PO 05/06/17 21:12 50 mcg ONCE ONE Administration Misoprostol 25 mcg 05/07/17 01:30 05/08/17 02:58 Cytotec PO 11/03/17 01:29 Not Given Q4H NIKI Misoprostol 25 mcg 05/07/17 14:30 05/08/17 02:58 Cytotec Vag Cap VG 11/03/17 14:29 Not Given Q4H NIKI Morphine Sulfate Confirm 05/09/17 07:17 Morphine Pf 5 Mg/10 Ml Administered 05/09/17 07:18 Dose 5 mg .ROUTE .STK-MED ONE [place]ford Oil Confirm 05/06/17 21:00 Sweet Oil Administered 05/06/17 21:01 Dose 118 ml .ROUTE .STK-MED ONE Ondansetron HCl Confirm 05/09/17 06:49 Zofran Administered 05/09/17 06:50 Dose 4 mg .ROUTE .STK-MED ONE Oxytocin Confirm 05/06/17 21:01 Pitocin Administered 05/06/17 21:02 Dose 30 unit .ROUTE .STK-MED ONE Oxytocin Confirm 05/08/17 12:47 Pitocin Administered 05/08/17 12:48 Dose 30 unit .ROUTE .STK-MED ONE Oxytocin Confirm 05/09/17 07:10 Pitocin Administered 05/09/17 07:11 Dose 100 units .ROUTE .STK-MED ONE Phenylephrine HCl Confirm 05/08/17 08:23 Neosynephrine Administered 05/08/17 08:24 Dose 1,000 mcg .ROUTE .STK-MED ONE Terbutaline Sulfate Confirm 05/06/17 21:01 Brethine Administered 05/06/17 21:02 Dose 1 mg .ROUTE .STK-MED ONE - Vital Signs Height/Weight (Nursing): Height 160.02 cm Weight 62.596 kg Labs: 05/06/17 20:04 Patient ABO/Rh B POSITIVE 05/06/17 20:04
[2017-05-09] MEDS ORDERED: ONDANSETRON 4 MG/2 ML VIAL IVP PRN (07:59)
[2017-05-09] MEDS ORDERED: HYDROCODONE/APAP 5/325 TAB PO PRN (07:59)
[2017-05-09] MEDS ORDERED: OXYCODONE/APAP 5/325 TAB PO PRN (07:59)
--- NOTE | 2017-05-09 07:59 | OBDEL ---
Info Type: Primary Presentation at Delivery: Vertex L&D Analgesia/Anesthesia Type: Epidural GBS+: No Intrapartum Medications: Generic Name Dose Route Start Last Admin Trade Name [place] PRN Reason Stop Dose Admin Acetaminophen 650 mg 05/08/17 00:01 05/09/17 03:21 Tylenol PO 11/04/17 00:00 650 mg Q6HRS PRN Administration Pain, Mild/Fever, Can Take PO Lactated Ringer's 1,000 mls @ 0 mls/hr 05/06/17 19:49 05/09/17 02:49 Lr IV 11/02/17 19:48 1,000 mls PRN PRN Administration SEE PROTOCOL CONDITIONS Protocol Per Protocol Fentanyl/Bupivacaine HCl 100 mls @ 0 mls/hr 05/08/17 09:30 05/09/17 04:12 Fentanyl/Bupivacaine/Ns 2 Mcg/Ml 0.1% (Premix EP 05/18/17 09:29 100 mls CONT NIKI Administration Protocol As Directed Lactated Ringer's 500 mls @ 0 mls/hr 05/08/17 09:30 05/08/17 07:00 Lr IV 11/04/17 09:29 500 mls CONT NIKI Administration As Directed Ondansetron HCl 4 mg 05/08/17 09:07 05/08/17 13:26 Zofran IVP 05/09/17 09:06 4 mg Q4HRS PRN Administration Nausea/Vomiting, Can't Take PO Discontinued Medications Generic Name Dose Route Start Last Admin Trade Name [place] PRN Reason Stop Dose Admin Dinoprostone 10 mg 05/07/17 14:48 05/07/17 15:45 Cervidil VG 05/07/17 14:49 10 mg ONCE ONE Administration Cefazolin Sodium/Dextrose 100 mls @ 200 mls/hr 05/09/17 07:00 05/09/17 06:34 Ancef 2 Gm (Premix) IV 05/09/17 07:29 100 mls ONCE ONE Administration Misoprostol 50 mcg 05/06/17 21:11 05/06/17 21:34 Cytotec PO 05/06/17 21:12 50 mcg ONCE ONE Administration Misoprostol 25 mcg 05/07/17 01:30 05/08/17 02:58 Cytotec PO 11/03/17 01:29 Not Given Q4H NIKI Misoprostol 25 mcg 05/07/17 14:30 05/08/17 02:58 Cytotec Vag Cap VG 11/03/17 14:29 Not Given Q4H [facility] - Infant Care Provider K9 Handler/[employer] TE[employer]ER: Roberta Neumann - Hospital Course Intrapartum: 05/07/17 13:18 Comfortable, not feeling contractions. No vaginal bleeding. Reports good movement. 05/07/17 15:51 Complains of mild-moderate pain with contractions. No vaginal bleeding or loss of fluid. 05/08/17 05:12 Patient did not rest much throughout the night. 05/08/17 07:06 Comfortable s/p epidural 05/08/17 12:10 Pt is doing well, no complaints. Comfortable with epidural that was replaced. 05/08/17 15:42 Pt had some n/v after eating some soup, but relief with Zofran. Kept down pudding. No pain with ctx's noted. 05/09/17 00:00 Pt was sleeping, no complaints. 05/09/17 02:03 Pt still comfortable, resting. 05/09/17 05:51 Pt was sleeping. Indications for Delivery: Postterm Unfavorable Cervix Vaginal Delivery - Labor and Delivery Amniotic Fluid Color: Clear Non-surgical Procedures: Amniotomy Operative Report - Delivery Pre-op Diagnoses: IUP @ 40 5/7 wks s/p Cytotec, Cervidil, mosqueda bulb and Pitocin with intolerance to labor Post-op Diagnoses: IUP @ 40 5/7 wks s/p Cytotec, Cervidil, mosqueda bulb and Pitocin with intolerance to labor History of Prior Section: No Nulliparous Prior to Delivery: Yes Indications for Current Section: Non-reas. Status Surgeon: Xochitl Gregory [employer] Intern: Celia Lynn Anesthesiologist: True Rodriguez Complications: Nucal Cord (loose x 1 - slipped) Findings: A viable female with 8 and 9 apgars in cephalic presentation; delayed cord clamping done. Cord blood obtained. Placenta delivered intact manually. Grossly normal appearing uterus, tubes and ovaries. IV Fluid (ml): 1,600 EBL: 800cc UO: 150 cc clear urine Data Maurice Delivery Date: 05/09/17 Delivery Time: 07:08 RASHEED: 05/04/17 Gestational Age: 40 week(s) and 5 day(s) Sex of : Female Score (1 Min): 8 Score (5 Min): 9 ICD10 Worksheet Patient Problems: Problems Problem Status Onset Encounter for induction of labor Acute intolerance to labor, delivered, current hospitalization Acute Post-dates Acute Status post primary low transverse section Acute - ICD10 Problem Qualifiers (1) Post-dates (2) intolerance to labor, delivered, current hospitalization (3) Status post primary low transverse section
--- NOTE | 2017-05-09 07:59 | POSTANESTH ---
Post Anesthetic Evaluation Cardiovascular Status: Similar to Pre-Op Cond Respiratory Status: Similar to Pre-op Cond. Level of Consciousness/Mental Status: Alert and Oriented Pain Control: Adequate, Prn Tx Ordered Nausea/Vomiting Control: Adequate, Prn Tx Ordered Complications Possibly Related to Anesthesia: None Noted
[2017-05-09] MEDS: KETOROLAC 30 MG/1 ML SDV IVP SCH ×3 (11:14→22:59)
[2017-05-09] MEDS: SENNOSIDES/DOCUSATE SODIUM TAB PO SCH ×2 (12:41→19:37)
[2017-05-10 00:34] LABS: ADD MORPH? NO; ADD SCAN? YES; ATYPICAL LYMPHOCYTE FLAG 0 (0-99); FRAGMENT RBC FLAG 0 (0-99); HEMATOCRIT 28.2 % (38.0-47.0); LIPEMIA HEMOLYSIS FLAG 90 (0-99); MEAN CELL HEMOGLOBIN 30.9 pg (27.9-34.1); MEAN CELL HEMOGLOBIN CONCENTR. 35.5 g/dL (32.4-36.7); MEAN PLATELET VOLUME 12.8 fL (8.7-11.7); PLATELET CLUMPS FLAG 10 (0-99); PLATELET COUNT 88 10^3/uL (150-400); RED BLOOD CELL COUNT 3.24 10^6/uL (4.18-5.33); RED CELL DISTRIBUTION WIDTH 12.3 % (11.5-15.2)
[2017-05-10 00:35] LABS: LEFT SHIFT FLG 110 (0-99)
[2017-05-10 00:59] LABS: ADD DIFF? YES; SCAN POSITIVE
[2017-05-10 01:03] LABS: LARGE PLATELETS PRESENT; PLATELET ESTIMATE DECREASED (ADEQ)
[2017-05-10 02:29] LABS: ALANINE AMINOTRANSFERASE 29 IU/L (9-52); ALKALINE PHOSPHATASE 101 IU/L (38-126); ANION GAP 6 mEq/L (8-16); ASPARTATE AMINOTRANSFERASE 25 IU/L (14-46); CALCIUM 8.2 mg/dL (8.5-10.4); CARBON DIOXIDE 23 mEq/l (22-31); CHLORIDE 104 mEq/L (97-110); CREATININE 0.8 mg/dL (0.6-1.0); GLOMERULAR FILTRATION RATE > 60; GLUCOSE 101 mg/dL (70-100); POTASSIUM 3.9 mEq/L (3.5-5.2); SODIUM 133 mEq/L (134-144); TOTAL PROTEIN 3.9 g/dL (6.3-8.2)
[2017-05-10 02:37] LABS: BILIRUBIN,TOTAL < 0.1 mg/dL (0.1-1.4)
[2017-05-10] MEDS: KETOROLAC 30 MG/1 ML SDV IVP SCH (05:14)
[2017-05-10 08:04] LABS: HEMATOCRIT 25.9 % (38.0-47.0); HEMOGLOBIN 9.1 g/dL (12.6-16.3); MEAN CELL HEMOGLOBIN 30.5 pg (27.9-34.1); MEAN CELL HEMOGLOBIN CONCENTR. 35.1 g/dL (32.4-36.7); MEAN CELL VOLUME 86.9 fL (81.5-99.8); RED BLOOD CELL COUNT 2.98 10^6/uL (4.18-5.33); RED CELL DISTRIBUTION WIDTH 12.5 % (11.5-15.2)
[2017-05-10] MEDS: HYDROCODONE/APAP 5/325 TAB PO PRN ×5 (08:44→23:03)
[2017-05-10] MEDS: FERROUS SULFATE 325 MG TAB PO SCH ×2 (08:45→20:52)
[2017-05-10] MEDS: SENNOSIDES/DOCUSATE SODIUM TAB PO SCH ×2 (08:45→20:52)
--- NOTE | 2017-05-10 09:44 | OBPP ---
Progress Note Assessment/Plan: Assessment: POD 1 s/p primary C/S for intol remote from delivery doing well anemia with hct 25, plts stable Plan: routine care. iron BID, recheck CBC in am 05/10/17 09:26 Subjective/ Course: 05/10/17 09:44 Pt doing ok. pain is noticeable courtney when moving in bed and trying to stand up. Isael reg diet, no nausea. tired. working on BF and baby latching. Bld has lessened. mosqueda just out and hasn't urinated yet. Objective: 05/10/17 07:45 05/10/17 02:05 Patient ABO/Rh B POSITIVE 05/06/17 20:04 Total Bilirubin < 0.1 mg/dL (0.1-1.4) L 05/10/17 02:05 AST 25 IU/L (14-46) 05/10/17 02:05 ALT 29 IU/L (9-52) 05/10/17 02:05 Temp Pulse Resp BP Pulse Ox 37.1 C 91 14 91/57 L 99 05/10/17 08:00 05/10/17 08:00 05/10/17 08:00 05/10/17 08:00 05/10/17 08:00 Uterine Position/Fundal Height: Umbilicus -1 Uterine Tone: Firm Physical Exam - Physical Exam Abdomen: non-tender (approp post op tenderness), soft, dressing (CDI) Extremities: non-tender, pedal edema (minimal) Skin: normal color, warm/dry Neuro/Psych: alert, normal mood/affect
[2017-05-10] MEDS: IBUPROFEN 600 MG TAB PO PRN ×3 (11:06→23:02)
[2017-05-10 20:02] VITALS: RESP 16
[2017-05-11] MEDS: HYDROCODONE/APAP 5/325 TAB PO PRN ×4 (05:04→17:47)
[2017-05-11] MEDS: IBUPROFEN 600 MG TAB PO PRN ×3 (05:05→17:45)
[2017-05-11] MEDS: FERROUS SULFATE 325 MG TAB PO SCH ×2 (09:25→19:33)
[2017-05-11] MEDS: SENNOSIDES/DOCUSATE SODIUM TAB PO SCH ×2 (09:26→19:33)
--- NOTE | 2017-05-11 09:39 | OBPP ---
Progress Note Assessment/Plan: Assessment: 1) s/p PCS secondary to intolerance to labor, remote from delivery POD # 2 - pt is stable 2) Anemia - pt is asymptomatic Plan: Continue routine post-op care Encourage ambulation Plan for d/c home in am 05/1105/11/17 09:37 Subjective/ Course: 05/10/17 09:44 Pt doing ok. pain is noticeable courtney when moving in bed and trying to stand up. Isael reg diet, no nausea. tired. working on BF and baby latching. Bld has lessened. mosqueda just out and hasn't urinated yet. Objective: 05/10/17 07:45 05/10/17 02:05 Patient ABO/Rh B POSITIVE 05/06/17 20:04 Total Bilirubin < 0.1 mg/dL (0.1-1.4) L 05/10/17 02:05 AST 25 IU/L (14-46) 05/10/17 02:05 ALT 29 IU/L (9-52) 05/10/17 02:05 Temp Pulse Resp BP Pulse Ox 36.1 C 93 16 90/58 L 97 05/10/17 20:00 05/10/17 20:00 05/10/17 20:00 05/10/17 20:00 05/10/17 20:00 Uterine Position/Fundal Height: Umbilicus -1 Uterine Tone: Firm Physical Exam - Physical Exam Respiratory: lungs clear, normal breath sounds Cardiac/Chest: regular rate, rhythm Abdomen: normal bowel sounds, non-tender, soft, flatus (+), incision (C/D/I, well approximated) Extremities: non-tender, normal inspection Skin: normal color, warm/dry Neuro/Psych: alert, normal mood/affect, oriented x 3
--- NOTE | 2017-05-11 11:42 | GOP ---
[f rep st] OPERATIVE REPORT DATE OF OPERATION: 05/09/2017 SURGEON: Xochitl Gregory DO DENTAL DIRECTOR: WOOD Nelson. ANESTHESIA: Epidural. ANESTHESIOLOGIST: True Rodriguez MD PREOPERATIVE DIAGNOSIS: Intrauterine at 40 weeks and 5 days with intolerance to labor, remote from delivery. POSTOPERATIVE DIAGNOSIS: Intrauterine at 40 weeks and 5 days with intolerance to labor, remote from delivery. PROCEDURE PERFORMED: Primary low transverse section. FINDINGS: A viable female in cephalic presentation, with 8 and 9 Apgars , born at 07:08 a.m. Cord clamping was delayed x60 seconds. Cord blood was obtained. Placenta delivered manually, intact with a 3 vessel cord. Grossly normal-appearing uterus, tubes, and ovaries bilaterally. ESTIMATED BLOOD LOSS: 800 cc. INDICATIONS: Patient is a 36-year-old, 1, para 0, at 40 weeks and 5 days, who presented for a postdate induction. Patient received Cytotec x5, Cervidil, Beck balloon for cervical ripening. She progressed to 4 cm on Pitocin. There were intermittent late decels noted and Pitocin could not be titrated up. We discuss proceeding with a secondary to intolerance of labor, and her being remote from delivery at 4 cm. Surgical consents were obtained. Discussed risks, benefits, and alternatives of procedure including, but not limited to, bleeding, infection,and damage to surrounding organs. The patient understands all risks at this time, wants to proceed with surgery. DESCRIPTION OF PROCEDURE: The patient was taken to the operating room with her epidural. She was prepped and draped in the usual sterile manner. Placed in supine position with a leftward tilt. A Beck catheter was already in place. After adequate anesthesia was assured, a Pfannenstiel skin incision was made 2 fingerbreadths above the pubic symphysis. Incision was carried down to the underlying layer of fascia with the Bovie. The fascia was then incised in the midline. Fascial incision was then extended laterally with Merida scissors. Superior aspect of fascial incision was grasped with Juan clamps, elevated, and the underlying rectus muscle dissected off sharply. Inferior aspect of fascial incision was then grasped with Juan clamps, elevated, and rectus muscles dissected off sharply. Rectus muscles were then in the midline. The peritoneum was then visualized and entered bluntly and extended superiorly and inferiorly with good visualization of bladder. Bladder blade was then inserted. The vesicouterine peritoneum was grasped with pickups and entered sharply with Metzenbaum scissors. Incision was extended laterally and the bladder flap was created digitally. Bladder blade was then reinserted. A low-transverse uterine incision was then made with a scalpel. Incision was extended anteriorly and posteriorly digitally. The baby was then delivered in cephalic presentation. There was a loose nuchal cord noted x1. It was slipped over the baby's head. The cord was delayed clamping for 60 seconds, then clamped x2 and cut. The handed off to awaiting nurse practitioner. Cord blood was sent. The placenta was then removed manually, noted intact with 3-vessel cord. Uterus was then exteriorized, cleared of all clots and debris. Uterine incision was then repaired with 0 Vicryl in a running lock fashion. Hemostasis was noted. A 2nd imbricating layer of suture was then performed with 0 Vicryl. Again, hemostasis was noted. The uterus was then returned to the abdomen. The gutters were cleared of all clots and debris. Reinspection of the uterine incision revealed a little bit of oozing, so at this time surgical Maren was placed as well as [id number] stitches of 0 Vicryl and hemostasis was achieved. The rectus muscles were then reapproximated with 2-0 Vicryl in an inverted mattress fashion. The fascia was then closed with 0 Vicryl in a running fashion. Hemostasis was noted. The skin was then closed with 4-0 Vicryl on a [place] needle. Patient tolerated the procedure well. No complications noted. Sponge, lap, needle and instrument counts were correct x2. The patient was then taken out of supine left tilt and taken to the recovery room in stable condition. Pathology: None. IV FLUIDS: 1600 cc LR. URINE OUTPUT: 150 cc of clear urine at the end the procedure. /[id number]/MODL MTDD
[2017-05-11 21:06] VITALS: BP 100/71; PULSE 103; TEMP 98.1; O2SAT 96
[2017-05-12] MEDS: IBUPROFEN 600 MG TAB PO PRN ×3 (00:21→11:18)
[2017-05-12] MEDS: HYDROCODONE/APAP 5/325 TAB PO PRN ×4 (00:21→15:18)
[2017-05-12] MEDS: FERROUS SULFATE 325 MG TAB PO SCH (09:24)
[2017-05-12] MEDS: SENNOSIDES/DOCUSATE SODIUM TAB PO SCH (09:24)
--- NOTE | 2017-05-12 12:43 | OBPP ---
Progress Note Assessment/Plan: Assessment: POD 3 s/p primary C/S for intol remote from delivery doing well anemia with hct 25, plts stable Plan: routine care. iron BID, d/c home 05/10/17 09:26 05/12/17 12:40 Subjective/ Course: 05/10/17 09:44 Pt doing ok. pain is noticeable courtney when moving in bed and trying to stand up. Rodolfo reg diet, no nausea. tired. working on BF and baby latching. Bld has lessened. mosqueda just out and hasn't urinated yet. 05/12/17 12:41 Pt doing well. Pain controlled with [place] q 4-6 hrs and ibu q 6. urinating fine. bld is light. amb ok without dizziness. rodolfo reg diet. working on BF and pumping. baby to f/u for weight check tomorrow. Ready for d/c Objective: 05/10/17 07:45 05/10/17 02:05 Patient ABO/Rh B POSITIVE 05/06/17 20:04 Total Bilirubin < 0.1 mg/dL (0.1-1.4) L 05/10/17 02:05 AST 25 IU/L (14-46) 05/10/17 02:05 ALT 29 IU/L (9-52) 05/10/17 02:05 Temp Pulse Resp BP Pulse Ox 36.7 C 103 H 16 100/71 96 05/11/17 20:20 05/11/17 20:20 05/11/17 20:20 05/11/17 20:20 05/11/17 20:20 Uterine Position/Fundal Height: Umbilicus -1 Uterine Tone: Firm Physical Exam - Physical Exam Abdomen: non-tender (approp post op tenderness), soft, incision (CDI) Extremities: non-tender, pedal edema (none) Skin: normal color, warm/dry Neuro/Psych: alert, normal mood/affect
--- NOTE | 2017-05-12 12:49 | OBGCSDC ---
General Delivery Information - General Info : 1 Para: 1 Abortions: 0 Type: Primary L&D Analgesia/Anesthesia Type: Epidural Admission Date: 05/06/17 Labs: Patient ABO/Rh B POSITIVE 05/06/17 20:04 Hct 25.9 % (38.0-47.0) L 05/10/17 07:45 - Hospital Course Antepartum: 05/08/17 12:11 Postdate IOL. Intrapartum: 05/07/17 13:18 Comfortable, not feeling contractions. No vaginal bleeding. Reports good movement. 05/07/17 15:51 Complains of mild-moderate pain with contractions. No vaginal bleeding or loss of fluid. 05/08/17 05:12 Patient did not rest much throughout the night. 05/08/17 07:06 Comfortable s/p epidural 05/08/17 12:10 Pt is doing well, no complaints. Comfortable with epidural that was replaced. 05/08/17 15:42 Pt had some n/v after eating some soup, but relief with Zofran. Kept down pudding. No pain with ctx's noted. 05/09/17 00:00 Pt was sleeping, no complaints. 05/09/17 02:03 Pt still comfortable, resting. 05/09/17 05:51 Pt was sleeping. : 05/10/17 09:44 Pt doing ok. pain is noticeable courtney when moving in bed and trying to stand up. Isael reg diet, no nausea. tired. working on BF and baby latching. Bld has lessened. mosqueda just out and hasn't urinated yet. 05/12/17 12:41 Pt doing well. Pain controlled with [place] q 4-6 hrs and ibu q 6. urinating fine. bld is light. amb ok without dizziness. isael reg diet. working on BF and pumping. baby to f/u for weight check tomorrow. Ready for d/c Vaginal - Diagnosis Amniotic Fluid Color: Clear - Procedures Non-surgical Procedures: Amniotomy - Delivery Providers Surgeon: Xochitl Gregory [employer] Operator: Celia Lynn Anesthesiologist: True Rodriguez - Delivery Indications for Current Section: Non-reas. Status Non-surgical Procedures: Amniotomy Intra-op Complications: Nucal Cord (loose x 1 - slipped) EBL: 800cc UO: 150 cc clear urine [place] Data Maurice Delivery Date: 05/09/17 Delivery Time: 07:03 RASHEED: 05/04/17 Gestational Age: 41 week(s) and 1 day(s) Sex of Infant: Female Weight (gm): 3090 kg Score (1 Min): 8 Score (5 Min): 9 Discharge Information - Discharge Information Prescriptions: Hydrocodone/APAP 5/325 [[place]bert 5/325 (*)] 1 - 2 tab PO Q4HRS PRN #30 tab PRN Reason: Pain, Moderate Able To Take Po Condition: Good Instruction/Follow Up: See Instruction Sheet, Two Weeks, Four Weeks, Six Weeks
== END 2017-05-12 15:30 | disposition home or self-care (01) | DRG 766 ==
LOC: FLD 19:15 → FOB 05-09 10:17
PROVIDERS: ADMIT Advanced Practice Midwife; ATTEND Obstetrics & Gynecology
DX: O48.0 Post-term pregnancy (principal); O69.81X0 Labor and delivery complicated by cord around neck, without compression, not applicable or unspecified; O76 Abnormality in fetal heart rate and rhythm complicating labor and delivery; O90.81 Anemia of the puerperium; Z3A.41 41 weeks gestation of pregnancy; Z37.0 Single live birth
CPT/HCPCS: J0690; J1885; J2274; J2370; J2405; J2550; J2590; J3010; J3105

== ENCOUNTER 2017-05-20 13:10 | Observation (INO) | payer OTHER ==
--- NOTE | 2017-05-20 15:24 | EDPHY ---
H & P Time Seen by Provider: 05/20/17 15:23 HPI/ROS: CHIEF COMPLAINT: Nausea and vomiting HISTORY OF PRESENT ILLNESS: Patient had on May 09 and has been having intermittent nausea and vomiting ever since. Today she presents with persistent vomiting including a temperature of a 100 degrees F 2 days ago. Of note about a week ago she was seen in her OBGYN clinic and was thought to have some redness around her incision as well as some engorgement in her breasts and some dysuria and was treated with Keflex. Although symptoms have resolved. Nausea and vomiting is moderate to severe. Not associated with diarrhea. She does have some intermittent right lower posterior chest pain worse with certain movements palpation and deep breath. No current dysuria. Some mild lower abdominal discomfort. Does not feel bloated REVIEW OF SYSTEMS: Eye: no change in vision ENT: no sore throat Cardiac: HPI no syncope Pulmonary: no cough or SOB Abdomen: HPI Musculoskeletal: no back pain Skin: no rash Neuro: no headache Constitutional: no fever : no urinary symptoms A comprehensive 10 point review of systems is otherwise negative aside from elements mentioned in the history of present illness. PAST MEDICAL HISTORY: Had recent as above Social history: Here with spouse General Appearance: Alert and conversant, cooperative. Eyes: No scleral icterus. ENT, Mouth: Normal mucous membranes. Respiratory: Normal respiratory effort, breath sounds equal, lungs are clear to auscultation. No splinting, full sentences. Cardiovascular: Regular rate and rhythm. Gastrointestinal: Abdomen is soft and non tender. Incision looks clean dry and intact without redness or discharge. Neurological: Alert and oriented x3. Normally conversant. Face symmetric, normal movement and sensation in all extremities. Skin: Warm and dry, no rashes. Musculoskeletal: No calf tenderness. She has some point tenderness to palpation on her posterior right 11th and 12th ribs. Psychiatric: Not agitated. Emergency Department course/MDM: Dr. Martinez from [facility] called prior to patient's arrival and was concerned about bowel obstruction or other postoperative complication. With pleuritic right-sided chest pain and recent plan for D-dimer, followed by appropriate CT imaging, discussed and consented. IV started 12.5 mg IV Phenergan given as she has been taking Zofran at home without relief of her symptoms. 1632: D-dimer 6, CTA chest and abdomen pelvis ordered to evaluate for postop complication or PE. 1750: [place], CT results: no PE, 6x 1.2cm rectus sheath abscess, discussed with Dr. Martinez at this time. Patient seen by Dr. Martinez, requests admission to her service for further evaluation and treatment. She asks that I defer any further treatment including antibiotics which will be given on the floor. Smoking Status: Never smoked Constitutional: Initial Vital Signs Temperature (C) 37 C 05/20/17 13:13 Heart Rate 84 05/20/17 13:13 Respiratory Rate 16 05/20/17 13:13 Blood Pressure 118/89 H 05/20/17 13:13 O2 Sat (%) 96 05/20/17 13:13 O2 Delivery Mode Room Air Allergies/Adverse Reactions: No Known Allergies Allergy (Unverified 05/06/17 19:35) Home Medications: Medication Instructions Recorded Vit27&Calcium/Iron/FA 1 tab PO DAILY 05/06/17 [] Docusate Sodium [Colace 100 MG (*)] 100 mg PO BID PRN cap 05/12/17 Ferrous Sulfate [Ferrous Sulf 325 325 mg PO BID tab 05/12/17 MG (*)] Hydrocodone/APAP 5/325 [[place] 1 - 2 tab PO Q4HRS PRN #30 tab 05/12/17 5/325 (*)] Ibuprofen [Motrin (*)] 600 mg PO Q6HRS PRN tab 05/12/17 Polyethylene Glycol 3350 [Miralax 17 gm PO DAILY PRN pkt 05/12/17 17 gm (*)] Simethicone [Mylicon] 80 mg PO .TIDMEALS AND HS PRN 05/12/17 tab.chew Medical Decision Making - Diagnostics Imaging Results: Imaging Impressions Abdomen CT 05/20/17 16:32 Impression: 1. Anterior pelvic wall abdominis rectus muscle abscess measuring 6 x 1.2 x 8 cm. 2. Heterogenous enhancing uterus which may be postsurgical, although uterine infection/inflammation or retained products cannot be entirely excluded. 3. No intraperitoneal pelvic abscesses or fluid collections. 4. No bowel obstruction or pneumoperitoneum. Findings and recommendations discussed with Emergency Department physician, Piter Urbano at 1750 hour, 05/20/2017. Final report concurs with initial preliminary interpretation. Chest/Thorax CTA 05/20/17 16:32 Impression: 1. No definite pulmonary thromboemboli. 2. No aortic aneurysm or dissection. 3. No acute pulmonary disease. Findings and recommendations discussed with Emergency Department physician, Piter Urbano at 17:50 hour, 05/20/2017. Final report concurs with initial preliminary interpretation. A test result has been communicated to a licensed care provider and documented in the [employer] Critical Result system on 05/20/2017 17:57, Message ID [id number]. Differential Diagnosis: My differential includes but not limited to bowel obstruction, postoperative abscess, ureteral obstruction, anesthetic reaction. Consult/Admit Bed Type: Martinez to see in ED, 1835 - Data Points Laboratory Results: Laboratory Results 05/20/17 15:30 05/20/17 15:30 05/20/17 05/20/17 05/20/17 15:30 15:30 15:30 WBC 16.48 10^3/uL H 10^3/uL (3.80-9.50) RBC 4.25 10^6/uL 10^6/uL (4.18-5.33) Hgb 12.6 g/dL g/dL (12.6-16.3) POC Hgb Hct 36.4 % L % (38.0-47.0) POC Hct MCV 85.6 fL fL (81.5-99.8) MCH 29.6 pg pg (27.9-34.1) MCHC 34.6 g/dL g/dL (32.4-36.7) RDW 12.1 % % (11.5-15.2) Plt Count 491 10^3/uL H 10^3/uL (150-400) MPV 9.0 fL fL (8.7-11.7) Neut % (Auto) Not Reported Lymph % (Auto) Not Reported Bond % (Auto) Not Reported Eos % (Auto) Not Reported Baso % (Auto) Not Reported Nucleat RBC Rel Count 0.0 % % (0.0-0.2) Absolute Neuts (auto) Not Reported Absolute Lymphs (auto) Not Reported Absolute Monos (auto) Not Reported Absolute Eos (auto) Not Reported Absolute Basos (auto) Not Reported Absolute Nucleated RBC 0.00 10^3/uL 10^3/uL (0-0.01) Immature Gran % Not Reported Seg Neutrophils % 71 % % Band Neutrophils % 2 % % Lymphocytes % 21 % % Monocytes % 3 % % Eosinophils % 3 % % Immature Gran # Not Reported Absolute Seg Neuts 11.70 10^/uL H 10^/uL (1.70-6.50) Absolute Band Neuts 0.33 10^3/uL 10^3/uL (0.00-0.70) Absolute Lymphocytes 3.46 10^3/uL H 10^3/uL (1.00-3.00) Absolute Monocytes 0.49 10^3/uL 10^3/uL (0.30-0.80) Absolute Eosinophils 0.49 10^3/uL H 10^3/uL (0.03-0.40) RBC/WBC/PLT Morphology NORMAL (NORMAL) Platelet Estimate INCREASED H (ADEQ) D-Dimer 6.15 ug/mLFEU H ug/mLFEU (0.00-0.50) POC Sodium Sodium 138 mEq/L mEq/L (134-144) POC Potassium Potassium 4.2 mEq/L mEq/L (3.5-5.2) POC Chloride Chloride 100 mEq/L mEq/L (97-110) Carbon Dioxide 25 mEq/l mEq/l (22-31) Anion Gap 13 mEq/L mEq/L (8-16) POC BUN BUN 12 mg/dL mg/dL (7-23) Creatinine 0.8 mg/dL mg/dL (0.6-1.0) POC Creatinine Estimated GFR > 60 Glucose 93 mg/dL mg/dL (70-100) POC Glucose Calcium 9.6 mg/dL mg/dL (8.5-10.4) Total Bilirubin 0.2 mg/dL mg/dL (0.1-1.4) Conjugated Bilirubin 0.0 mg/dL mg/dL (0.0-0.5) Unconjugated Bilirubin 0.2 mg/dL mg/dL (0.0-1.1) AST 19 IU/L IU/L (14-46) ALT 39 IU/L IU/L (9-52) Alkaline Phosphatase 144 IU/L H IU/L (38-126) Total Protein 7.4 g/dL g/dL (6.3-8.2) Albumin 3.9 g/dL g/dL (3.5-5.0) 05/20/17 15:28 WBC RBC Hgb POC Hgb 13.3 gm/dL gm/dL (12.6-16.3) Hct POC Hct 39 % % (38-47) MCV MCH MCHC RDW Plt Count MPV Neut % (Auto) Lymph % (Auto) Bond % (Auto) Eos % (Auto) Baso % (Auto) Nucleat RBC Rel Count Absolute Neuts (auto) Absolute Lymphs (auto) Absolute Monos (auto) Absolute Eos (auto) Absolute Basos (auto) Absolute Nucleated RBC Immature Gran % Seg Neutrophils % Band Neutrophils % Lymphocytes % Monocytes % Eosinophils % Immature Gran # Absolute Seg Neuts Absolute Band Neuts Absolute Lymphocytes Absolute Monocytes Absolute Eosinophils RBC/WBC/PLT Morphology Platelet Estimate D-Dimer POC Sodium 139 mEq/L mEq/L (134-144) Sodium POC Potassium 3.8 mEq/L mEq/L (3.3-5.0) Potassium POC Chloride 103 mEq/L mEq/L (97-110) Chloride Carbon Dioxide Anion Gap POC BUN 11 mg/dL mg/dL (7-23) BUN Creatinine POC Creatinine 0.8 mg/dL mg/dL (0.6-1.0) Estimated GFR Glucose POC Glucose 95 mg/dL mg/dL (70-100) Calcium Total Bilirubin Conjugated Bilirubin Unconjugated Bilirubin AST ALT Alkaline Phosphatase Total Protein Albumin Medications Given: Discontinued Medications Sodium Chloride (Ns) 1,000 mls @ 0 mls/hr IV EDNOW ONE; Wide Open PRN Reason: Protocol Stop: 05/20/17 15:50 Last Admin: 05/20/17 16:00 Dose: 1,000 mls Promethazine HCl (Phenergan) 12.5 mg IVP EDNOW ONE Stop: 05/20/17 15:50 Last Admin: 05/20/17 16:01 Dose: 12.5 mg Point of Care Test Results: 05/20/17 15:28 POC Sodium 139 POC Potassium 3.8 POC Chloride 103 POC BUN 11 POC Creatinine 0.8 POC Glucose 95 Departure - Departure Disposition: [facility] Inpatient Acute Clinical Impression: Abdominal wall abscess at site of surgical wound Nausea & vomiting Qualifiers: Vomiting type: unspecified Vomiting Intractability: intractable Qualified Code( s): R11.2 - Nausea with vomiting, unspecified Condition: Good
[2017-05-20] MEDS ORDERED: NS 1,000 ML IV ONE (15:49)
[2017-05-20] MEDS ORDERED: PROMETHAZINE HCL 25 MG/ML INJ IVP ONE (15:49)
[2017-05-20 15:58] LABS: ADD DIFF? YES; ADD MORPH? NO; ADD SCAN? NO; ATYPICAL LYMPHOCYTE FLAG 40 (0-99); FRAGMENT RBC FLAG 0 (0-99); HEMATOCRIT 36.4 % (38.0-47.0); HEMOGLOBIN 12.6 g/dL (12.6-16.3); LEFT SHIFT FLG 20 (0-99); LIPEMIA HEMOLYSIS FLAG 90 (0-99); MEAN CELL HEMOGLOBIN 29.6 pg (27.9-34.1); MEAN CELL HEMOGLOBIN CONCENTR. 34.6 g/dL (32.4-36.7); MEAN CELL VOLUME 85.6 fL (81.5-99.8); PLATELET CLUMPS FLAG 0 (0-99); PLATELET COUNT 491 10^3/uL (150-400); RED BLOOD CELL COUNT 4.25 10^6/uL (4.18-5.33); RED CELL DISTRIBUTION WIDTH 12.1 % (11.5-15.2)
[2017-05-20 16:03] LABS: ALANINE AMINOTRANSFERASE 39 IU/L (9-52); ALBUMIN 3.9 g/dL (3.5-5.0); ALKALINE PHOSPHATASE 144 IU/L (38-126); ANION GAP 13 mEq/L (8-16); ASPARTATE AMINOTRANSFERASE 19 IU/L (14-46); BILIRUBIN,TOTAL 0.2 mg/dL (0.1-1.4); BILIRUBIN-UNCONJUGATED 0.2 mg/dL (0.0-1.1); CALCIUM 9.6 mg/dL (8.5-10.4); CARBON DIOXIDE 25 mEq/l (22-31); CHLORIDE 100 mEq/L (97-110); CREATININE 0.8 mg/dL (0.6-1.0); GLOMERULAR FILTRATION RATE > 60; GLUCOSE 93 mg/dL (70-100); POTASSIUM 4.2 mEq/L (3.5-5.2); SODIUM 138 mEq/L (134-144); TOTAL PROTEIN 7.4 g/dL (6.3-8.2)
[2017-05-20 16:31] LABS: PLATELET ESTIMATE INCREASED (ADEQ)
[2017-05-20] MEDS ORDERED: IOPAMIDOL (ISOVUE 370) 100 ML BTL IV ONE (16:53)
[2017-05-20] MEDS ORDERED: BISACODYL 10 MG SUPP PR ONE (21:59)
[2017-05-20] MEDS ORDERED: ONDANSETRON 4 MG/2 ML VIAL IVP PRN (22:00)
[2017-05-20] MEDS: CLINDAMYCIN 600 MG/DEXTROSE 50 ML IV SCH (22:32)
[2017-05-20] MEDS: AMPICILLIN SODIUM 2 GM in NS 100 ML IV SCH (23:29)
[2017-05-21] MEDS: GENTAMICIN 100 MG/NACL 100 ML IV SCH ×2 (00:08→11:39)
--- NOTE | 2017-05-21 01:17 | GHP ---
[f rep st] PREOP HISTORY AND PHYSICAL DATE OF ADMISSION: 05/20/2017 ADMISSION DIAGNOSIS: Abdominal wall infection. HISTORY OF PRESENT ILLNESS: The patient is a 36-year-old 1, para 1-0-0- 1 who is 11 days postop, status post a primary low transverse section for arrest of dilation. The patient initially had an uncomplicated course and postoperative course. However, she was seen in the office last week for malaise and decreased appetite and increasing nausea. She had very tender breasts and some abdominal pain, so she was started on Keflex. The patient has had persistent intermittent nausea and vomiting with decreased appetite. She states she is usually a very good eater and she is just not quite feeling well. She has went a long period of time without having a bowel movement, but now is having bouts of diarrhea, but does not feel like she is fully evacuating her bowel. The patient had an elevated white count on May 10 when she was started on antibiotics. She called the office today complaining of the general malaise and intermittent right lower quadrant abdominal pain, so she was instructed to go to the emergency room. PHYSICAL EXAMINATION: VITAL SIGNS: On arrival to the emergency room, patient' s vital signs are stable. Her blood pressure is 135/85, her heart rate is between 50s and 70s. Her O2 saturation is 100%. Her temperature is 36.9. GENERAL APPEARANCE: Alert and oriented x3. NECK: Mobile and supple. PSYCH: Appropriate affect. HEART: Rate is regular. LUNGS: Clear to auscultation bilaterally. ABDOMEN: Soft, nondistended, nontender. No guarding or rebound is noted. She does complain of intermittent pain in the right lower quadrant. PELVIC: Reveals a still enlarged, mobile, slightly tender uterus with no adnexal masses. She states she feels a lot of pressure on exam. IMAGING: CT of the abdomen shows an anterior pelvic wall abdominis rectus abscess versus hematoma measuring 6 x 1.2 x 8 cm. There is also heterogeneous enhancing uterus which may be postsurgical versus possible retained products of conception versus endometritis. No intraperitoneal pelvic abscess or fluid collections were noted. No bowel obstruction or pneumoperitoneum was noted. LABS: Showed a white count of 16.48, hemoglobin of 12.6, hematocrit of 36.4, and her platelets are 491. AST and ALT are normal. Her creatinine is 0.8. Remainder of her PH panel was negative. ASSESSMENT AND PLAN: A 36-year-old 1, para 1-0-0-1 who is 11 days post operation, status post primary low transverse section for arrest of dilation. The patient is having constipation with exception of small amount of loose stools. She has a questionable hematoma versus abscess of the rectus muscle versus possible endometritis. We will admit patient for observation and give her a suppository to help resolve her constipation, and start on ampicillin , gentamycin and clindamycin for endometritis versus anterior abdominal wall abscess. We will talk with Interventional Radiology in the morning and follow patient clinically and discuss the possibility of performing a drainage. Patient does not appear to need to go to surgery tonight for exploration as she is stable and her pain overall is well controlled. We will manage patient under close observation and reassess in the morning. /[id number]/MODL MTDD
[2017-05-21] MEDS: AMPICILLIN SODIUM 2 GM in NS 100 ML IV SCH ×4 (05:55→23:49)
[2017-05-21 06:27] LABS: ADD DIFF? YES; ADD MORPH? NO; ADD SCAN? NO; ATYPICAL LYMPHOCYTE FLAG 40 (0-99); FRAGMENT RBC FLAG 0 (0-99); HEMATOCRIT 31.6 % (38.0-47.0); HEMOGLOBIN 10.9 g/dL (12.6-16.3); LEFT SHIFT FLG 20 (0-99); LIPEMIA HEMOLYSIS FLAG 90 (0-99); MEAN CELL HEMOGLOBIN 29.4 pg (27.9-34.1); MEAN CELL HEMOGLOBIN CONCENTR. 34.5 g/dL (32.4-36.7); MEAN CELL VOLUME 85.2 fL (81.5-99.8); MEAN PLATELET VOLUME 8.9 fL (8.7-11.7); PLATELET CLUMPS FLAG 0 (0-99); PLATELET COUNT 427 10^3/uL (150-400); RED BLOOD CELL COUNT 3.71 10^6/uL (4.18-5.33); RED CELL DISTRIBUTION WIDTH 12.2 % (11.5-15.2)
[2017-05-21] MEDS: CLINDAMYCIN 600 MG/DEXTROSE 50 ML IV SCH ×4 (06:33→22:09)
[2017-05-21 07:11] LABS: PLATELET ESTIMATE ADEQUATE (ADEQ)
--- NOTE | 2017-05-21 10:21 | SOAPPROG ---
SOAP Progress Note Assessment/Plan: Assessment: 36 y/o POD #11 s/p LTCS secondary to arrest of dilation re admitted for presumed endometritis Plan: Pt is feeling better now on Amp, Gent and Clinda. Her WBC decreased slightly this am to 15. Her exam is benign with very little tenderness at her fundus, her incision looks clean/ dry and intact and her rectus muscles are non-tender. She had some success with BM last night, we will try a mineral oil enema today to remove the impaction, slowly advance diet and manage conservatively. I am consulting IR to evaluate the CT from last night to see about ? drainage of the "rectus-sheath abscess" vs conservative management with IV antibiotics. She also expressed interest in trying to breast feed, will get consultation today, hospital grade pump and active pumping Q 2 hours, to see what we can salvage of her milk supply. 05/21/17 10:17 Subjective: Pt is feeling better this am. She has 2 small BM of hard "old" stool with the suppositories last night. She has less nausea and is not vomiting. She denes fever, chills and reports abdominal pain is improving. Objective: Vital Signs Temp Pulse Resp BP Pulse Ox 36.8 C 72 16 109/68 95 05/21/17 08:00 05/21/17 08:00 05/21/17 08:00 05/21/17 08:00 05/21/17 08:00 Laboratory Results 05/21/17 06:10 05/20/17 05/21/17 05/22/17 05:59 05:59 05:59 Intake Total 820 Balance 820 Physical Exam - Physical Exam General Appearance: WD/WN, alert, no apparent distress Neck: non-tender, full range of motion, supple Respiratory: chest non-tender, lungs clear, normal breath sounds Cardiac/Chest: regular rate, rhythm Abdomen: normal bowel sounds, non-tender, soft, other (incision c/d/i, rectus muscles soft and non tender) Extremities: swelling (no), Salvador's sign (neg) ICD10 Worksheet Patient Problems: Problems Problem Status Onset Abdominal wall abscess at site of surgical wound Acute Nausea & vomiting Acute Encounter for induction of labor Acute intolerance to labor, delivered, current hospitalization Acute Post-dates Acute Status post primary low transverse section Acute
[2017-05-21] MEDS ORDERED: POLYETHYLENE GLYCOL 3350 17 GM PKT PO PRN (13:19)
[2017-05-21] MEDS ORDERED: MAGNESIUM HYDROXIDE 30 ML UDCUP PO PRN (13:19)
[2017-05-21] MEDS ORDERED: BISACODYL 10 MG SUPP PR PRN (13:19)
[2017-05-21] MEDS ORDERED: LACTULOSE 20 GM/30 ML UDCUP PO PRN (13:19)
[2017-05-21] MEDS: SENNOSIDES/DOCUSATE SODIUM TAB PO SCH (22:07)
[2017-05-22] MEDS: GENTAMICIN 100 MG/NACL 100 ML IV SCH ×2 (00:39→14:40)
[2017-05-22] MEDS: AMPICILLIN SODIUM 2 GM in NS 100 ML IV SCH ×2 (05:35→14:40)
[2017-05-22 06:08] LABS: % IMMATURE GRANULYOCYTES 1.4 % (0.0-1.1); ABSOLUTE IMMATURE GRANULOCYTES 0.19 10^3/uL (0.00-0.10); ADD DIFF? NO; ADD MORPH? NO; ADD SCAN? NO; ATYPICAL LYMPHOCYTE FLAG 40 (0-99); FRAGMENT RBC FLAG 0 (0-99); HEMATOCRIT 33.1 % (38.0-47.0); HEMOGLOBIN 11.1 g/dL (12.6-16.3); LEFT SHIFT FLG 10 (0-99); LIPEMIA HEMOLYSIS FLAG 80 (0-99); MEAN CELL HEMOGLOBIN 28.7 pg (27.9-34.1); MEAN CELL HEMOGLOBIN CONCENTR. 33.5 g/dL (32.4-36.7); MEAN CELL VOLUME 85.5 fL (81.5-99.8); PLATELET CLUMPS FLAG 0 (0-99); PLATELET COUNT 441 10^3/uL (150-400); RED BLOOD CELL COUNT 3.87 10^6/uL (4.18-5.33); RED CELL DISTRIBUTION WIDTH 12.2 % (11.5-15.2)
[2017-05-22] MEDS: CLINDAMYCIN 600 MG/DEXTROSE 50 ML IV SCH (06:36)
[2017-05-22] MEDS: SENNOSIDES/DOCUSATE SODIUM TAB PO SCH ×2 (13:09→22:34)
[2017-05-22] MEDS: AMOX/CLAVULANATE 500/125 MG TAB PO SCH ×2 (14:33→22:34)
--- NOTE | 2017-05-22 16:07 | SOAPPROG ---
SOAP Progress Note Assessment/Plan: Assessment: HD 3 with N/V which has now resolved, suspect resolved ileus Low grade temp on 05/20, none since WBCs 16 decreasing slowly to 14k today. fluid noted in rectus sheath - non tender Plan: stopped IV abx today and switched to oral augmentin D/W Dr Ruff of IR and he feels U/S guided aspiration of fluid might be helpful with diagnostics if abscess 05/22/17 16:04 Subjective: Pt feeling a lot better - no nausea and rodolfo regular diet. No pain and no narcs for last week. some results with supp with runny stool and small pellets. Has been pumping and BF baby when family brings in from home. No fever/chills. bleeding light, and urinating fine. Highly anxious about WBCs not dropping faster and family members (physicians) are feeling fluid needs to be drained. Objective: Vital Signs Temp Pulse Resp BP Pulse Ox 37.1 C 78 16 112/64 97 05/22/17 08:10 05/22/17 08:10 05/22/17 08:10 05/22/17 08:10 05/22/17 08:10 Laboratory Results 05/22/17 06:00 05/21/17 05/22/17 05/23/17 05:59 05:59 05:59 Intake Total 820 300 Balance 820 300 Physical Exam - Physical Exam General Appearance: WD/WN, alert, no apparent distress Abdomen: non-tender, soft, other (incision CDI) Pelvic Exam: vaginal bleeding (light lochia) Skin: normal color, warm/dry Extremities: non-tender, pedal edema (none) ICD10 Worksheet Patient Problems: Problems Problem Status Onset Abdominal wall abscess at site of surgical wound Acute Nausea & vomiting Acute Encounter for induction of labor Acute intolerance to labor, delivered, current hospitalization Acute Post-dates Acute Status post primary low transverse section Acute
[2017-05-22] MEDS ORDERED: LIDOCAINE 1% 300 MG/30 ML SDV ONE (16:09)
[2017-05-22 22:04] VITALS: BP 126/76; PULSE 88; RESP 16; TEMP 98.2; O2SAT 99
[2017-05-23] MEDS: AMOX/CLAVULANATE 500/125 MG TAB PO SCH (05:58)
[2017-05-23 06:31] LABS: % IMMATURE GRANULYOCYTES 1.7 % (0.0-1.1); ABSOLUTE IMMATURE GRANULOCYTES 0.18 10^3/uL (0.00-0.10); ADD DIFF? NO; ADD MORPH? NO; ADD SCAN? NO; ATYPICAL LYMPHOCYTE FLAG 50 (0-99); FRAGMENT RBC FLAG 0 (0-99); HEMATOCRIT 35.1 % (38.0-47.0); HEMOGLOBIN 11.6 g/dL (12.6-16.3); LEFT SHIFT FLG 10 (0-99); LIPEMIA HEMOLYSIS FLAG 80 (0-99); MEAN CELL HEMOGLOBIN 28.6 pg (27.9-34.1); MEAN CELL VOLUME 86.5 fL (81.5-99.8); MEAN PLATELET VOLUME 9.2 fL (8.7-11.7); PLATELET CLUMPS FLAG 0 (0-99); PLATELET COUNT 437 10^3/uL (150-400); RED BLOOD CELL COUNT 4.06 10^6/uL (4.18-5.33); RED CELL DISTRIBUTION WIDTH 12.4 % (11.5-15.2)
[2017-05-23] MEDS: SENNOSIDES/DOCUSATE SODIUM TAB PO SCH (09:42)
--- NOTE | 2017-05-23 19:07 | SOAPPROG ---
SOAP Progress Note Assessment/Plan: Assessment: Plan: Objective: Vital Signs Temp Pulse Resp BP Pulse Ox 36.8 C 88 16 126/76 H 99 05/22/17 20:15 05/22/17 20:15 05/22/17 20:15 05/22/17 20:15 05/22/17 20:15 Microbiology 05/22/17 Unknown Gram Stain - Final Abdomen - Aspirate Laboratory Results 05/23/17 06:00 05/22/17 05/23/17 05/24/17 05:59 05:59 05:59 Intake Total 300 Balance 300 ICD10 Worksheet Patient Problems: Problems Problem Status Onset Abdominal wall abscess at site of surgical wound Acute Encounter for induction of labor Acute intolerance to labor, delivered, current hospitalization Acute Nausea & vomiting Acute Post-dates Acute Status post primary low transverse section Acute
--- NOTE | 2017-05-23 19:11 | SOAPPROG ---
SOAP Progress Note Assessment/Plan: Assessment: pod# 14 s/p PLTCS hd# 4 - abdominal / rectus seroma wbc stabilized pumping Plan: discharge instructions follow up plan augmentin colace 05/23/17 19:08 Subjective: patient is doing great! pain is totally resolved. has had several small bowel movements and feels much better. working on breast feeding. ambulating. tolerating regular diet. no longer having nausea or vomiting. Objective: Vital Signs Temp Pulse Resp BP Pulse Ox 36.8 C 88 16 126/76 H 99 05/22/17 20:15 05/22/17 20:15 05/22/17 20:15 05/22/17 20:15 05/22/17 20:15 Microbiology 05/22/17 Unknown Gram Stain - Final Abdomen - Aspirate Laboratory Results 05/23/17 06:00 05/22/17 05/23/17 05/24/17 05:59 05:59 05:59 Intake Total 300 Balance 300 Physical Exam - Physical Exam General Appearance: WD/WN, alert, no apparent distress Neck: non-tender, full range of motion, supple Respiratory: chest non-tender, lungs clear, normal breath sounds Cardiac/Chest: normal peripheral pulses, regular rate, rhythm Abdomen: normal bowel sounds, non-tender, soft Rectal: deferred Skin: normal color, warm/dry, cyanosis Extremities: normal range of motion, non-tender, normal inspection, normal capillary refill Neuro/Psych: no motor/sensory deficits, alert, normal mood/affect, oriented x 3 ICD10 Worksheet Patient Problems: Problems Problem Status Onset Abdominal wall abscess at site of surgical wound Acute Encounter for induction of labor Acute intolerance to labor, delivered, current hospitalization Acute Nausea & vomiting Acute Post-dates Acute Status post primary low transverse section Acute
== END 2017-05-23 12:45 | disposition home or self-care (01) ==
LOC: FOB 20:34
PROVIDERS: ADMIT Obstetrics & Gynecology; ATTEND Obstetrics & Gynecology
PROC: 0J9830Z Drainage of Abdomen Subcutaneous Tissue and Fascia with Drainage Device, Percutaneous Approach (ICD-10-PCS; principal; 2017-05-20)
DX: O86.89 Other specified puerperal infections (principal); O99.73 Diseases of the skin and subcutaneous tissue complicating the puerperium; L02.211 Cutaneous abscess of abdominal wall
CPT/HCPCS: 10022; 71275; 74177; 76942; 96374; 99241; 99285; G0378; 82947-QW; G0463; J0290; J2550; Q9967